=== PATIENT | female | born 1980 | race African-American/Black ===

== ENCOUNTER 2017-07-13 15:09 | Inpatient (IN) | payer BC ==
[2017-07-13 17:06] LABS: Hemoglobin 12.2 g/dL (12.0-16.0); Mean Corpuscular HGB CONC 33.2 g/dL (32.0-36.0); Mean Corpuscular Volume 90.3 fl (81.0-99.0); Mean Platelet Volume 7.2 fL (7.4-10.4); Platelet Count 248 thou/uL (130-400); RBC Distribution Width 11.4 % (11.5-14.5); Red Blood Cell (RBC) Count 4.06 mill/uL (4.20-5.40); White Blood Cell (WBC) Count 5.2 thou/uL (4.8-10.8)
[2017-07-13 17:24] LABS: ALT (SGPT) 26 U/L (8-55); AST (SGOT) 42 U/L (5-34); Albumin 4.8 g/dL (3.5-5.0); Alkaline Phosphatase 33 U/L (40-150); Anion Gap 12 mmol/L (10-20); BUN (Urea Nitrogen) 10 mg/dL (7.0-18.7); Bilirubin, Total 0.4 mg/dL (0.2-1.2); CK (CPK) 1409 U/L (29-168); Calc. Creatinine Clearance 0 mL/min (70-130); Carbon Dioxide 27 mmol/L (22-29); Chloride 100 mmol/L (98-107); Estimated GFR-MDRD 48; Globulin 2.9 g/dL (2.4-3.5); Glucose 84 mg/dL (70-105); Lipase 38 U/L (8-78); Magnesium 2.1 mg/dL (1.6-2.6); Potassium 3.8 mmol/L (3.5-5.1); Protein, Total 7.7 g/dL (6.0-8.3); Sodium 135 mmol/L (136-145)
[2017-07-13 17:27] LABS: Band 1 % (5-11); Lymphocytes 54 % (21-51); MDiff Complete? YES; Monocytes 7 % (0-10); Neutrophil 32 % (42-75); Reactive Lymphocytes 6 % (0-10)
[2017-07-13 17:28] LABS: CKMB 5.2 ng/mL (0-6.6); Troponin I Less than 0.010 ng/mL (< 0.028)
--- NOTE | 2017-07-13 18:06 | ULT ---
RIGHT UPPER EXTREMITY VENOUS DUPLEX STUDY: 07/13/17 Veins of the right upper extremity evaluated with color doppler and spectral analysis and compression . HISTORY: Right upper extremity pain and edema. Internal jugular vein shows normal compression and blood flow. Right subclavian vein shows normal demi w with doppler evaluation. Right axillary vein, right basilic vein, right cephalic vein, and brachial vein showed normal flow. Radial and ulnar veins appear normal below the elbow. IMPRESSION: Unremarkable right upper extremity venous duplex exam. No evidence of venous thrombosis. POS: VALERIY
[2017-07-13] MEDS ORDERED: Ondansetron HCl/PF 4 MG/2 ML Vial IVP PRN (19:54)
[2017-07-13] MEDS ORDERED: Sodium Chloride 0.9% 1,000 ML IV SCH (19:54)
[2017-07-13] MEDS ORDERED: Ondansetron ODT 4 MG TAB SL PRN (19:54)
[2017-07-13 21:24] VITALS: BMI 31.5
[2017-07-13 23:24] LABS: BHCG - Serum Negative (NEGATIVE); Pregs Control Background? CLEAR/WHITE (CLR/WHITE); Pregs Control Bar Appear? YES (CONTROL BAR)
[2017-07-13 23:51] LABS: Thyroid Stimulating Hormone 96.6825 uIU/mL (0.35-4.94)
[2017-07-14] MEDS ORDERED: Ondansetron ODT 4 MG TAB PO PRN (00:03)
[2017-07-14] MEDS ORDERED: Ondansetron HCl/PF 4 MG/2 ML Vial IVP PRN (00:03)
[2017-07-14] MEDS ORDERED: Calcium Carbonate 500 MG ChewTAB PO PRN (00:03)
[2017-07-14] MEDS ORDERED: Acetaminophen 325 MG TAB PO PRN (00:03)
[2017-07-14] MEDS ORDERED: Senokot 8.6 MG TAB PO PRN (00:03)
[2017-07-14 00:06] LABS: Free T4 (Free Thyroxine) Less than 0.40 ng/dL (0.70-1.48)
--- NOTE | 2017-07-14 00:23 | HP ---
DATE OF ADMISSION: 07/13/2017 PRIMARY CARE PHYSICIAN: Dr. Freedman at [facility]. CHIEF COMPLAINT: Generalized muscle cramping with edema of 2 weeks' duration. HISTORY OF PRESENT ILLNESS: Patient is a 37-year-old female with hypothyroidism, currently not takin g any medications, presented to the emergency room with above complaints. Five days ago, the patient was evaluated by her primary care physician for similar complaints. She was found to have a TSH of 95.54. Free T4 was not done. ESR, uric acid, rheumatoid factor, VASQUEZ were negative. She was started on levothyroxine 125 mcg. Over the last two weeks, patient has gradual worsening muscle cramping an d weakness. She also noticed bilateral hand swelling. She had multiple aches and pains in the joint s more or less symmetrical especially in bilateral shoulders, bilateral wrist and hands. She had dif ficulty removing her ring from the right index finger. She denies any fever or chills. She has been not on any medications until 3 days ago. She denies any recent fall or injury. In the emergency ro om, her workup was consistent with rhabdomyolysis with CK of 1409 with a creatinine of 1.49. Please note that 5 days ago, creatinine was 1.49 at [facility]. She was started on IV fluids. PAST MEDICAL HISTORY: 1. Hypothyroidism secondary to thyroidectomy started on levothyroxine 2 days ago. 2. Migraines. She restarted taking amitriptyline 10 mg at bedtime 2 days ago. 3. Sickle cell trait. 4. Hypertension. 5. Obesity with a BMI of 31.6. PAST SURGICAL HISTORY: Total thyroidectomy in 04/2015. ALLERGIES: The patient denies any drug allergies. CURRENT HOME MEDICATIONS: Please note that patient was out of medications for several months. Two d ays ago, she resumed levothyroxine, amitriptyline and was started on tizanidine due to generalized m uscle cramping. She also takes Imitrex as needed. SOCIAL HISTORY: The patient currently lives at home. Denies any smoking, alcohol, or drug use. Her last name has changed to Arsen after marriage. She goes with the last name Arsen at [place] [facility]. FAMILY HISTORY: Positive for heart disease and diabetes in her mother. REVIEW OF SYSTEMS: The following complete review of systems was negative, unless otherwise mentioned in the HPI or below: Constitutional: Weight loss or gain, ability to conduct usual activities. Skin: Rash, itching. Eyes: Double vision, pain. ENT/Mouth: Nose bleeding, neck stiffness, pain, tenderness. Cardiovascular: Palpitations, dyspnea on exertion, orthopnea. Respiratory: Shortness of breath, wheezing, cough, hemoptysis, fever or night sweats. Gastrointestinal: Poor appetite, abdominal pain, heartburn, nausea, vomiting, constipation, or diarr hea. Genitourinary: Urgency, frequency, dysuria, nocturia. Musculoskeletal: Pain, swelling. Neurologic/Psychiatric: Anxiety, depression. Allergy/Immunologic: Skin rash, bleeding tendency. Please note that patient has been complaining of generalized fatigue as well. PHYSICAL EXAMINATION: VITAL SIGNS: Showed temperature 98.6, respiration 18, pulse rate of 84, blood pressure 114/74 with O 2 saturation of 100% on room air. GENERAL: A 37-year-old female in no apparent distress. Complaining of generalized aches and pains. HEENT: Head atraumatic, normocephalic, sclerae are anicteric. Moist mucous membranes. No oral lesi on. NECK: Supple, no JVD appreciated. No carotid bruit. LUNGS: Clear to auscultation bilaterally. HEART: S1, S2 present. Regular rate and rhythm. No murmur, rubs, or gallops appreciated. ABDOMEN: Soft, nontender, bowel sounds present. EXTREMITIES: 1+ edema in bilateral lower extremities, nonpitting. SKIN: As discussed above. LYMPH NODES: No palpable lymph nodes in the neck. NEUROLOGIC: Grossly nonfocal, moves all four extremities. PSYCHIATRIC: Alert, awake, oriented x3. SKIN: Warm and dry. LYMPH NODES: No palpable lymph nodes in the neck. PERIPHERAL VASCULAR: Radial pulses palpable bilaterally. MUSCULOSKELETAL: No joint swelling or tenderness. LABORATORY FINDINGS: TSH is 96.6, free T4 is pending. test negative. CK 1409, AST 42, cr eatinine 1.49, sodium of 135. WBC was 5.2 with neutrophils of 32. right upper extremity Doppler was negative for DVT. EKG by my review showed sinus rhythm without significant ST-T wave changes. IMPRESSION: 1. Generalized anasarca with muscle cramping and fatigue secondary to hypothyroidism. Please note t hat the patient has been noncompliant with levothyroxine for several months. Levothyroxine was start ed 2 days ago by her primary care physician. Levothyroxine dose at 125 mcg will be continued. 2. Rhabdomyolysis secondary to hypothyroidism. We will continue IV fluids. Add muscle relaxants. 3. Acute kidney injury on chronic kidney disease stage 2. We will continue IV fluids. This is prob ably secondary to rhabdomyolysis. We will check urinalysis. 4. Abnormal liver function tests, probably secondary to rhabdomyolysis. 5. Hyponatremia. 6. Obesity with a BMI of 31.6. 7. Medication noncompliance. 8. History of migraines. 9. History of total thyroidectomy. 10. Sickle cell trait. 11. Hypertension, diet controlled. 12. Patient will require 2 days for stabilization. 13. Patient was extensively counseled to be compliant with all of her medications.
[2017-07-14] MEDS: Sodium Chloride 0.9% 1,000 ML IV SCH ×5 (00:28→22:39)
[2017-07-14 05:31] LABS: Bilirubin Negative (Negative); Blood, Urine Negative (Negative); Clarity CLOUDY (Clear); Glucose, Urine (Dipstick) Negative (Negative); Leukocyte Small (Negative); Nitrite Negative (Negative); Protein, Urine (Dipstick) Negative (Neg-Trace); Specific Gravity, Urine 1.013 (1.002-1.036)
[2017-07-14 05:33] LABS: Bacteria/HPF 4+ HPF (None Seen); Hyaline Casts/LPF 0-3 HYALINE CAST LPF (0-3 Hyaline); Pathc Cast-AUWi Flag 0.54 (0-2.49)
[2017-07-14 05:41] LABS: ALT (SGPT) 19 U/L (8-55); AST (SGOT) 30 U/L (5-34); Albumin 3.6 g/dL (3.5-5.0); Alkaline Phosphatase 28 U/L (40-150); Anion Gap 12 mmol/L (10-20); BUN (Urea Nitrogen) 8 mg/dL (7.0-18.7); Bilirubin, Total 0.3 mg/dL (0.2-1.2); CK (CPK) 1206 U/L (29-168); Calc. Creatinine Clearance 96 mL/min (70-130); Calcium 8.5 mg/dL (7.8-10.44); Carbon Dioxide 21 mmol/L (22-29); Chloride 108 mmol/L (98-107); Estimated GFR-MDRD 68; Globulin 2.3 g/dL (2.4-3.5); Glucose 71 mg/dL (70-105); Magnesium 2.1 mg/dL (1.6-2.6); Phosphorus 3.9 mg/dL (2.3-4.7); Potassium 3.8 mmol/L (3.5-5.1); Protein, Total 5.9 g/dL (6.0-8.3); Sodium 137 mmol/L (136-145)
[2017-07-14] MEDS ORDERED: Levothyroxine Sodium 125 MCG TAB PO SCH (06:00)
[2017-07-14] MEDS: Famotidine 20 MG TAB PO SCH ×2 (08:29→19:22)
[2017-07-14] MEDS: Docusate 100 MG CAP PO SCH ×2 (08:30→19:22)
[2017-07-14] MEDS: Cyclobenzaprine 10 MG TAB PO PRN ×2 (08:33→18:21)
--- NOTE | 2017-07-14 11:56 | PDOC.PN ---
- Subjective Encounter Start Date: 07/14/17 Encounter Start Time: 11:54 Patient seen at bedside. No overnight events, complains of cramps. No SOB, palpitations, C/P - Objective Resuscitation Status: Resuscitation Status FULL:Full Resuscitation MAR Reviewed: Yes Vital Signs & Weight: Vital Signs (12 hours) Temp Pulse Resp BP Pulse Ox 07/14/17 08:00 98.7 F 71 16 97 07/14/17 07:37 98.7 F 71 16 104/68 99 07/14/17 04:21 97.9 F 74 20 99/66 98 07/14/17 00:03 98.2 F 79 18 116/57 L 95 Weight Weight 189 lb 9.561 oz I&O: 07/13/17 07/14/17 07/15/17 06:59 06:59 06:59 Intake Total 2050 240 Output Total 550 Balance 1500 240 Result Diagrams: 07/13/17 16:49 07/14/17 04:38 Phys Exam - Physical Examination Constitutional: NAD HEENT: moist MMs Neck: no nodes, no JVD, supple, full ROM Respiratory: no wheezing, clear to auscultation bilateral Cardiovascular: RRR Gastrointestinal: soft, non-tender Musculoskeletal: pulses present, edema present Trace edema Neurological: moves all 4 limbs Psychiatric: A&O x 3 Dx/Plan (1) Rhabdomyolysis Code(s): M62.82 - RHABDOMYOLYSIS Status: Acute (2) Hypothyroidism Code(s): E03.9 - HYPOTHYROIDISM, UNSPECIFIED Status: Acute - Plan cont current plan of care, plan discussed w/ family, out of bed/ambulate * Continue with IV fluids. Monitor I&Os * Trend CK * Increase levothyroxine dose. Assaria dosing of 1.6 mcg/kg would be 137 mcg per day * Check U/S of LE B/L
--- NOTE | 2017-07-14 13:26 | ULT ---
BILATERAL LOWER EXTREMITY VENOUS DUPLEX SONOGRAM: HISTORY: Bilateral leg pain and swelling. FINDINGS: Each common femoral vein and greater saphenous junction were evaluated along with each femoral, deep femoral, popliteal, and posterior tibial vein. There is good color and spectral Doppler flow, compre ssion, and augmentation. IMPRESSION: No sonographic evidence of deep vein thrombosis within either lower extremity. POS: VALERIY
[2017-07-15] MEDS: Sodium Chloride 0.9% 1,000 ML IV SCH ×2 (04:27→16:41)
[2017-07-15 04:49] LABS: AST (SGOT) 30 U/L (5-34); Albumin 3.6 g/dL (3.5-5.0); Alkaline Phosphatase 25 U/L (40-150); Anion Gap 12 mmol/L (10-20); BUN (Urea Nitrogen) 7 mg/dL (7.0-18.7); Bilirubin, Total 0.3 mg/dL (0.2-1.2); CK (CPK) 1631 U/L (29-168); Calc. Creatinine Clearance 98 mL/min (70-130); Calcium 7.7 mg/dL (7.8-10.44); Carbon Dioxide 20 mmol/L (22-29); Chloride 107 mmol/L (98-107); Estimated GFR-MDRD 69; Globulin 2.2 g/dL (2.4-3.5); Glucose 86 mg/dL (70-105); Magnesium 1.8 mg/dL (1.6-2.6); Phosphorus 2.9 mg/dL (2.3-4.7); Potassium 3.7 mmol/L (3.5-5.1); Protein, Total 5.8 g/dL (6.0-8.3); Sodium 135 mmol/L (136-145)
[2017-07-15 04:51] LABS: ALT (SGPT) 17 U/L (8-55)
[2017-07-15] MEDS ORDERED: Levothyroxine Sodium 25 MCG TAB PO SCH (06:00)
[2017-07-15] MEDS ORDERED: Levothyroxine Sodium 112 MCG TAB PO SCH (06:00)
[2017-07-15] MEDS: Famotidine 20 MG TAB PO SCH (08:34)
[2017-07-15] MEDS: Docusate 100 MG CAP PO SCH (08:34)
[2017-07-15 16:32] VITALS: BP 110/79; TEMP 98.5
--- NOTE | 2017-07-16 10:08 | DIS ---
DATE OF DISCHARGE: 07/15/2017 DISCHARGE DISPOSITION: Home. FOLLOWUP: Follow up with primary care physician, Dr. Lombardi, at [facility]. INPATIENT CONSULTANTS: None. The patient was seen and examined on the day of discharge. Denies any new complaints. No chest pain , shortness of breath, palpitations reported. Vital signs on the day of discharge showed temperature 98.5, pulse rate of 90, respirations 16, blood pressure 110/79. SIGNIFICANT LABORATORIES: 1. TSH was 96.6, free T4 was less than 0.4. test was negative. CK on admission was 1409, at discharge 1631. Creatinine on the day of discharge is 1.09. 2. Bilateral lower extremity Doppler was negative for DVT. 3. Right upper extremity Doppler was negative for DVT. 4. Repeat CK and base met is recommended on 07/19/2017. Primary care physician advised to follow. Patient was advised to drink at least 2 liters of fluid for this week. BRIEF HOSPITAL COURSE: The patient is a 37-year-old -[place] female with hypothyroidism, sec ondary to thyroidectomy, presented to the hospital with generalized muscle cramping and anasarca of 2 weeks' duration. Please note that patient has not been taking her levothyroxine for a long time. S he just started levothyroxine 2 days ago. Please refer to the history and physical dated 07/13/2017 for further details. The patient was admitted to the hospital with a diagnosis of generalized anasarca with muscle crampin g and fatigue secondary to severe hypothyroidism. I reviewed the [facility] records. VASQUEZ and r heumatoid factor were negative. Her CK this admission was 1409 with a creatinine of 1.49 on admissio n. The creatinine improved with IV fluids to 1.09. CK on admission was 1400 range and at discharge is 1631. Patient is requesting to be discharged. CK is not back to baseline. She will need a repea t CK in next 3-4 days. She was advised to drink at least 2-3 liters of fluid due to elevated CK. Sh salo stated understanding. I advised her that generalized anasarca will gradually improve once the thyr oid functions improve. FINAL DIAGNOSES: 1. Generalized anasarca with muscle cramping and fatigue secondary to severe hypothyroidism (patient has not been taking levothyroxine for several months). 2. Rhabdomyolysis, probably secondary to hypothyroidism. Patient has a followup with Rheumatology a s outpatient next month. 3. Acute kidney injury on chronic kidney disease stage 3, improved. 4. Abnormal liver function tests on admission secondary to rhabdomyolysis. LFT is normal on the day of discharge. 5. Hyponatremia. 6. Obesity with a BMI of 31.6. 7. History of migraines. 8. Medical noncompliance. 9. Sickle cell trait. 10. Hypertension. 11. Chronic kidney disease, stage 2. Plan of care was discussed with the patient in detail. She stated understanding. Total time coordinating the discharge of this patient was 32 minutes. She was extensively counseled about the complications from elevated CK including renal failure. She stated understanding. She is still requesting to get discharged.
== END 2017-07-15 17:09 | disposition home or self-care (01) | DRG 644 ==
LOC: ERS 15:09 → T4-A 18:10
PROVIDERS: ADMIT Internal Medicine; ATTEND Internal Medicine
DX: E89.0 Postprocedural hypothyroidism (principal); M62.82 Rhabdomyolysis; E87.1 Hypo-osmolality and hyponatremia; I12.9 Hypertensive chronic kidney disease with stage 1 through stage 4 chronic kidney disease, or unspecified chronic kidney disease; N18.2 Chronic kidney disease, stage 2 (mild); D57.3 Sickle-cell trait; N13.9 Obstructive and reflux uropathy, unspecified; E66.9 Obesity, unspecified; R94.5 Abnormal results of liver function studies; R60.1 Generalized edema; Z68.31 Body mass index [BMI] 31.0-31.9, adult; Z91.19 Patient's noncompliance with other medical treatment and regimen; Z83.3 Family history of diabetes mellitus; Z82.49 Family history of ischemic heart disease and other diseases of the circulatory system
CPT/HCPCS: 36415; 80053; 81001; 82550; 82553; 83690; 83735; 83880; 84100; 84439; 84443; 84484; 84703; 85025; 93005; 93970; 96360